=== PATIENT | female | born 1940 | race Caucasian/White ===

== ENCOUNTER 2019-11-22 06:00 | Day surgery (SDC) | payer OTHER ==
[~2019-11-22 06:00] MED LIST: DIOVAN320 MG PO; GLIPIZIDE10 MG PO; JANUMET 50-1,1 UDTAB PO; PROTONIX40 MG PO; SIMVASTATIN20 MG PO; ZETIA10 MG PO
== END 2019-11-22 11:35 | disposition home or self-care (01) ==
LOC: AMB-ENDOS 06:00
DX: D12.0 Benign neoplasm of cecum (principal); D12.2 Benign neoplasm of ascending colon; D12.3 Benign neoplasm of transverse colon; K64.8 Other hemorrhoids; Z12.11 Encounter for screening for malignant neoplasm of colon

== ENCOUNTER 2021-06-09 08:57 | Day surgery (SDC) | payer OTHER ==
[~2021-06-09 08:57] MED LIST changes: +COZAAR100 MG PO; +INSULIN SYRING1 EA29 SUBCUTANEO; +NEURONTIN300 MG PO; +NORVASC5 MG PO; +OMEPRAZOLE-BIC1 EAC1 PO
== END 2021-06-09 17:20 | disposition home or self-care (01) ==
LOC: CIR.AMB 08:57
PROVIDERS: ATTEND Colon & Rectal Surgery
DX: T85.111A Breakdown (mechanical) of implanted electronic neurostimulator of peripheral nerve electrode (lead), initial encounter (principal); Z20.822 Contact with and (suspected) exposure to COVID-19
CPT/HCPCS: 64590; 95971; L8679